=== PATIENT | male | born 1950 | race Caucasian/White ===

== ENCOUNTER 2016-12-24 12:17 | Emergency (ER) | payer OTHER, MEDICARE ==
[~2016-12-24 12:17] MED LIST: ASPI81TA2 PO; HYDR-2678 PO; HYDR25TA9 PO; INSU100I11 SQ; INSU100I13 SQ; LOSA100T6 PO; METF-620 PO; OXYC1TAB7 PO; TAMO20TA PO
[2016-12-24 12:56] VITALS: BP 140/89
--- NOTE | 2016-12-24 13:04 | PHYS DOC ---
Past Medical History Past Medical History: Arthritis, Cancer, Diabetes-Type II, Hypertension Additional Past Medical Histor: LEFT MASTECTOMY Past Surgical History: Cholecystectomy Additional Past Surgical Histo: LEFT ELBOW SURGERY Alcohol Use: None Drug Use: None Adult General Chief Complaint Chief Complaint: MECHANICAL FALL HPI HPI Patient is a 66 year old male who presents with right hip pain. Last night he tripped over a sprayer and landed on his right hip. He states his been able to ambulate makes it difficult for him to flex at his hip. He denies fevers chills nausea or vomiting. He has pain meds at home of oxycodone and just states he wants to know if his hip is broken. Eyes any other injuries such as headache, neck pain, chest pain or abdominal pain. Review of Systems Review of Systems Constitutional: Denies fever or chills [] Eyes: Denies change in visual acuity, redness, or eye pain [] HENT: Denies nasal congestion or sore throat [] Respiratory: Denies cough or shortness of breath [] Cardiovascular: No additional information not addressed in HPI [] GI: Denies abdominal pain, nausea, vomiting, bloody stools or diarrhea [] : Denies dysuria or hematuria [] Musculoskeletal: Denies back pain, pain in the right hip Integument: Denies rash or skin lesions [] Neurologic: Denies headache, focal weakness or sensory changes [] Endocrine: Denies polyuria or polydipsia [] Allergies Allergies Allergies Coded Allergies Type Severity Reaction Last Updated Verified No Known Drug Allergies 02/13/16 No Physical Exam Physical Exam Constitutional: Well developed, well nourished, no acute distress, non-toxic appearance. [] HENT: Normocephalic, atraumatic, bilateral external ears normal, oropharynx moist, no oral exudates, nose normal. [] Eyes: PERRLA, EOMI, conjunctiva normal, no discharge. [] Neck: Normal range of motion, no tenderness, supple, no stridor. [] Cardiovascular:Heart rate regular rhythm, no murmur [] Lungs & Thorax: Bilateral breath sounds clear to auscultation [] Abdomen: Bowel sounds normal, soft, no tenderness, no masses, no pulsatile masses. [] Skin: Warm, dry, no erythema, no rash. [] Back: No tenderness, no CVA tenderness. [] Extremities: Tender to palpation the posterior right hip without any step-offs, able to flex and extend with minimal discomfort of the right hip, no cyanosis, no clubbing, ROM intact, no edema left hip nontender full range of motion, dorsal pedis pulse intact on the right lower show many. [] Neurologic: Alert and oriented X 3, normal motor function, normal sensory function, no focal deficits noted. [] Psychologic: Affect normal, judgement normal, mood normal. [] Current Patient Data Vital Signs Vital Signs Date Time Temp Pulse Resp B/P (MAP) Pulse Ox O2 Delivery O2 Flow Rate FiO2 12/24/16 12:56 98.4 115 20 95 Room Air 98.4 EKG EKG [] Radiology/Procedures Radiology/Procedures [facility] [address] [place] [address] IMAGING REPORT Signed PATIENT: STEFANIA LABOY ACCOUNT: [id number] : 1950 LOCATION: ER AGE: 66 SEX: M EXAM STATUS: PRE ER ORD. PHYSICIAN: NERY CHIN MD REASON: pain PROCEDURE: HIP RIGHT 2V WITH PELVIS Pelvis with right hip, 3 views, 12/24/2016: History: Fall, hip pain No fracture or dislocation is identified. The hip joint spaces are fairly well-preserved with only mild marginal spurring. Arterial calcifications are present. IMPRESSION: No acute bony abnormality is detected. DICTATED and SIGNED BY: DANIA ATKINS MD DATE: 12/24/16 0976 CC: NERY CHIN MD; CLEMENTINA MORRISON Jr, MD ~ Impressions: Right hip contusion Course & Med Decision Making Course & Med Decision Making Pertinent Labs and Imaging studies reviewed. (See chart for details) X-rays do not show any fractures of the pelvis or hip. Patient has pain meds at home and crutches. He is being discharged in stable condition to follow up with primary care physician if his pain does not resolve over the next week. Return precautions given and is agreeable to the plan and being discharged in stable condition. Dragon Disclaimer Dragon Disclaimer This electronic medical record was generated, in whole or in part, using a voice recognition dictation system. Departure Departure Impression: Primary Impression: Hip pain Disposition: 01 HOME, SELF-CARE Condition: STABLE Referrals: CLEMENTINA MORRISON Jr, MD (PCP) Patient Instructions: Contusion, [id number] Additional Instructions: The x-rays of your hip did not show anything broken. It's likely contused. It will be sore for the next few days. Follow-up with her primary care physician within the next week if you're still in pain or discomfort. There is severe pain or discomfort please return back to ER. NERY CHIN MD December 24, 2016 13:04
--- NOTE | 2016-12-24 13:58 | RAD ---
Pelvis with right hip, 3 views, 12/24/2016: History: Fall, hip pain No fracture or dislocation is identified. The hip joint spaces are fairly well-preserved with only mild marginal spurring. Arterial calcifications are present. IMPRESSION: No acute bony abnormality is detected.
== END 2016-12-24 14:45 | disposition home or self-care (01) ==
LOC: ER 14:13
DX: M25.551 Pain in right hip (principal); M19.90 Unspecified osteoarthritis, unspecified site; E11.9 Type 2 diabetes mellitus without complications; I10 Essential (primary) hypertension; W22.8XXA Striking against or struck by other objects, initial encounter; Y93.89 Activity, other specified; Y92.89 Other specified places as the place of occurrence of the external cause; Y99.2 Volunteer activity
CPT/HCPCS: 73502; 99284-25

== ENCOUNTER → 2019-01-10 | Outpatient (CLI) | payer MEDICARE, OTHER ==
[~2019-01-10] MED LIST changes: +ASPI-630 PO; -ASPI81TA2 PO; +GADOTERATE 7.5 MMOL/15ML VIAL. IVP ONE; +HYDR-2145 PO; -HYDR25TA9 PO; +LOSA100T14 PO; -LOSA100T6 PO; -METF-620 PO; +METF10007 PO
[2019-01-10 09:51] LABS: CREATININE 1.4 mg/dL (0.7-1.3); GFR 50.1
--- NOTE | 2019-01-10 14:38 | RAD ---
MRI of the lumbar spine without and with contrast 01/10/2019 CLINICAL HISTORY: Low back pain with worsening right leg pain. History of breast cancer. TECHNIQUE: Unenhanced T1-weighted and T2-weighted sagittal and axial recovery sagittal images the lumbar spine were obtained. After the intravenous administration of 21 cc of Dotarem, enhanced T1-weighted sagittal and axial images of the lumbar spine were obtained. FINDINGS: Very mild S-shaped curvature of the thoracolumbar spine is seen. Degenerative signal changes are seen involving all the disks of the lumbar spine. Degenerative signal changes are seen within the marrow surrounding these discs. Loss of height of the L3-4 disc is noted. Several hemangiomas are seen scattered throughout the visualized thoracic and lumbar vertebral bodies. These measure 3 mm to 6 mm in size. The conus medullaris is within normal limits in morphology, position, and signal characteristics. No area of abnormal signal intensity is seen to suggest evidence of metastatic disease involving the visualized thoracic and lumbosacral vertebrae. No area of abnormal contrast enhancement is seen. At the L1-2 disc space there is a mild to moderate generalized disc bulge. Superimposed on this disc bulge is a left lateral focal disc protrusion. This measures 4 mm in AP diameter. Degenerative changes are seen involving the facet joints bilaterally. There is mild ligamentum flavum hypertrophy bilaterally. These findings when combined do not result in significant central spinal canal or neural foraminal stenosis. At the L2-3 disc space there is a mild generalized disc bulge. Degenerative changes are seen involving the facet joints bilaterally. There is mild ligamentum flavum hypertrophy bilaterally. These findings when combined do not result in significant central spinal canal or neural foraminal stenosis. At the L3-4 disc space there is a moderate generalized disc bulge. This is eccentric to the left. Superimposed on this disc bulge is a left lateral focal disc protrusion. This measures 9 mm in AP diameter. Degenerative changes are seen involving the facet joints bilaterally. There is moderate ligamentum flavum hypertrophy bilaterally. These findings when combined result in mild to moderate central spinal canal stenosis. Moderate left neural foraminal stenosis is seen. The right neural foramen is patent. At the L4-5 disc space there is a mild generalized disc bulge. Degenerative changes are seen involving the facet joints bilaterally. There is mild ligamentum flavum hypertrophy bilaterally. These findings do not result in significant central spinal canal or neural foraminal stenosis. At the L5-S1 disc space there is a mild generalized disc bulge. Degenerative changes are seen involving the facet joints bilaterally. These findings when combined do not result in significant central spinal canal or neural foraminal stenosis. IMPRESSION: The changes of degenerative disc disease are seen throughout the lumbar spine. These findings result in mild to moderate central spinal canal stenosis and moderate left neural foraminal stenosis at L3-4. Electronically signed by: Francisco Darling MD (01/10/2019 2:35 PM) [email or web address]
== END | disposition home or self-care (01) ==
LOC: MRI 09:21
PROVIDERS: ATTEND Physical Medicine & Rehabilitation
DX: M51.16 Intervertebral disc disorders with radiculopathy, lumbar region (principal); M47.27 Other spondylosis with radiculopathy, lumbosacral region; M48.061 Spinal stenosis, lumbar region without neurogenic claudication; M89.38 Hypertrophy of bone, other site; D18.09 Hemangioma of other sites
CPT/HCPCS: 36415; 72158; 82565; 84520; A9575

== ENCOUNTER → 2019-02-26 | Outpatient (CLI) | payer MEDICARE ==
[~2019-02-26] MED LIST changes: -GADOTERATE 7.5 MMOL/15ML VIAL. IVP ONE
--- NOTE | 2019-02-26 17:36 | RAD ---
CT LUMBAR SPINE WO CONTRAST Date: 02/26/2019 3:30 PM Indication: Comparison: MRI 01/10/2019. Technique: Helical CT images of the lumbar spine were obtained without contrast. Coronal and sagittal reformatted images were also performed. One or more of the following dose reduction techniques were utilized: Automated exposure control (AEC), Adjustment of mA and/or kV according to patient size, Use of iterative reconstruction technique such as ASiR, CT scan done according to ALARA and image gently/image wisely. Findings: The lumbar spine is normally aligned. No acute fracture. Vertebral body heights are maintained without compression deformity. No aggressive lytic or blastic osseous lesion. Moderate multilevel degenerative disc space height loss. Multilevel spinal canal stenosis and neuroforaminal narrowing, best characterized on recent MRI L-spine report. Multilevel mild and moderate facet arthrosis. Bilateral L5 pars defects. Calcified splenic granulomas. The visualized abdominal aorta is normal caliber. Moderate aortoiliac atherosclerotic disease. IMPRESSION: Moderate lumbar spondylosis. Multilevel spinal canal stenosis or neural foraminal narrowing, best characterized on recent MRI lumbar spine port. Electronically signed by: Matt Adam MD (02/26/2019 5:32 PM) [email or web address]
== END | disposition home or self-care (01) ==
LOC: CT 14:55
PROVIDERS: ATTEND Orthopaedic Surgery Orthopaedic Surgery of the Spine
DX: M47.26 Other spondylosis with radiculopathy, lumbar region (principal); M48.061 Spinal stenosis, lumbar region without neurogenic claudication; D73.89 Other diseases of spleen; I70.0 Atherosclerosis of aorta; I70.8 Atherosclerosis of other arteries
CPT/HCPCS: 72131

== ENCOUNTER 2019-06-08 16:14 | Emergency (ER) | payer MEDICARE ==
[~2019-06-08] VITALS: Ht 180.3 cm; Wt 108.9 kg
[2019-06-08] MEDS ORDERED: IV NORMAL SALINE 1000ML BAG 1,000 ML IV ONE (16:45)
--- NOTE | 2019-06-08 16:45 | PHYS DOC ---
Past Medical History Past Medical History: Arthritis, Cancer, Diabetes-Type II, Hypertension Additional Past Medical Histor: LEFT MASTECTOMY Past Surgical History: Cholecystectomy Additional Past Surgical Histo: LEFT ELBOW SURGERY Alcohol Use: None Drug Use: None Adult General Chief Complaint Chief Complaint: HYPERGLYCEMIA HPI HPI Patient is a 69 year old male who presents with high blood sugar. The patient states he checked his blood sugar about 4:00 and it was 540 at home and so took 15 units of subcutaneous regular insulin. The patient states that been coughing the last week or 2. He states that his blood sugars normally run in the 200s. He did state that he has been taking less insulin as he has been trying to save money. Denies any pain or fever this time. States he has been feeling off recently. Review of Systems Review of Systems Constitutional: Denies fever or chills [] Eyes: Denies change in visual acuity, redness, or eye pain [] HENT: Denies nasal congestion or sore throat [] Respiratory: Reports cough Cardiovascular: No additional information not addressed in HPI [] GI: Denies abdominal pain, nausea, vomiting, bloody stools or diarrhea [] : Denies dysuria or hematuria [] Musculoskeletal: Denies back pain or joint pain [] Integument: Denies rash or skin lesions [] Neurologic: Denies headache, focal weakness or sensory changes [] Endocrine: Denies polyuria or polydipsia [] Complete systems were reviewed and found to be within normal limits, except as documented in this note. Current Medications Current Medications Current Medications Medications (Trade) Dose Ordered Sig/Yanet Start Time Stop Time Status Last Admin Dose Admin Sodium Chloride 500 ml @ 500 mls/hr 1X ONCE 06/08/19 18:00 06/08/19 18:59 06/08/19 18:00 500 MLS/HR Allergies Allergies Allergies Coded Allergies Type Severity Reaction Last Updated Verified No Known Drug Allergies 02/13/16 No Physical Exam Physical Exam Constitutional: Well developed, well nourished, no acute distress, non-toxic appearance. [] HENT: Normocephalic, atraumatic, bilateral external ears normal, oropharynx moist, no oral exudates, nose normal. [] Eyes: PERRLA, EOMI, conjunctiva normal, no discharge. [] Neck: Normal range of motion, no tenderness, supple, no stridor. [] Cardiovascular:Heart rate regular rhythm, no murmur [] Lungs & Thorax: Bilateral breath sounds diminished to based bilaterally, otherwise clear. Abdomen: Bowel sounds normal, soft, no tenderness, no masses, no pulsatile masses. [] Skin: Warm, dry, no erythema, no rash. [] Back: No tenderness, no CVA tenderness. [] Extremities: No tenderness, no cyanosis, no clubbing, ROM intact, no edema. [] Neurologic: Alert and oriented X 3, normal motor function, normal sensory function, no focal deficits noted. [] Psychologic: Affect normal, judgement normal, mood normal. [] Current Patient Data Vital Signs Vital Signs Date Time Temp Pulse Resp B/P (MAP) Pulse Ox O2 Delivery O2 Flow Rate FiO2 06/08/19 16:18 97.2 102 12 160/86 (110) 97 Room Air 97.2 Lab Values Laboratory Tests Test 06/08/19 16:28 06/08/19 17:00 06/08/19 17:04 Glucose (Fingerstick) 399 mg/dL (70-99) H White Blood Count 8.0 x10^3/uL (4.0-11.0) Red Blood Count 4.17 x10^6/uL (4.30-5.70) L Hemoglobin 12.9 g/dL (13.0-17.5) L Hematocrit 38.1 % (39.0-53.0) L Mean Corpuscular Volume 91 fL (79-100) Mean Corpuscular Hemoglobin 31 pg (25-35) Mean Corpuscular Hemoglobin Concent 34 g/dL (31-37) Red Cell Distribution Width 13.3 % (11.5-14.5) Platelet Count 270 x10^3/uL (140-400) Neutrophils (%) (Auto) 57 % (31-73) Lymphocytes (%) (Auto) 33 % (24-48) Monocytes (%) (Auto) 6 % (0-9) Eosinophils (%) (Auto) 3 % (0-3) Basophils (%) (Auto) 1 % (0-3) Neutrophils # (Auto) 4.5 x10^3/uL (1.8-7.7) Lymphocytes # (Auto) 2.6 x10^3/uL (1.0-4.8) Monocytes # (Auto) 0.5 x10^3/uL (0.0-1.1) Eosinophils # (Auto) 0.2 x10^3/uL (0.0-0.7) Basophils # (Auto) 0.1 x10^3/uL (0.0-0.2) Sodium Level 138 mmol/L (136-145) Potassium Level 4.4 mmol/L (3.5-5.1) Chloride Level 101 mmol/L (98-107) Carbon Dioxide Level 25 mmol/L (21-32) Anion Gap 12 (6-14) Blood Urea Nitrogen 25 mg/dL (8-26) Creatinine 1.6 mg/dL (0.7-1.3) H Estimated GFR (Cockcroft-Gault) 42.8 BUN/Creatinine Ratio 16 (6-20) Glucose Level 399 mg/dL (70-99) H Calcium Level 8.5 mg/dL (8.5-10.1) Total Bilirubin 0.4 mg/dL (0.2-1.0) Aspartate Amino Transferase (AST) 39 U/L (15-37) H Alanine Aminotransferase (ALT) 33 U/L (16-63) Alkaline Phosphatase 60 U/L (46-116) Total Protein 7.1 g/dL (6.4-8.2) Albumin 3.3 g/dL (3.4-5.0) L Albumin/Globulin Ratio 0.9 (1.0-1.7) L Urine Collection Type Void Urine Color Yellow Urine Clarity Clear Urine pH 5.5 Urine Specific [place] >=1.030 Urine Protein Negative mg/dL (NEG-TRACE) Urine Glucose (UA) >=1000 mg/dL (NEG) Urine Ketones (Stick) Negative mg/dL (NEG) Urine Blood Negative (NEG) Urine Nitrite Negative (NEG) Urine Bilirubin Negative (NEG) Urine Urobilinogen Dipstick 1.0 mg/dL (0.2 mg/dL) Urine Leukocyte Esterase Negative (NEG) Urine RBC 0 /HPF (0-2) Urine WBC Occ /HPF (0-4) Urine Squamous Epithelial Cells Few /LPF Urine Bacteria 0 /HPF (0-FEW) Laboratory Tests 06/08/19 17:00 Laboratory Tests 06/08/19 17:00 EKG EKG EKG interpreted by Dr. Michelle Sinus with rate of 112. No STEMI, RBBB (not new). Radiology/Procedures Radiology/Procedures [][facility] [address] [place] [address] IMAGING REPORT Signed PATIENT: STEFANIA LABOY ACCOUNT: [id number] : 1950 LOCATION: ER AGE: 69 SEX: M EXAM STATUS: REG ER ORD. PHYSICIAN: ANNETTE TOMPKINS APRN REASON: cough PROCEDURE: CHEST PA & LATERAL CHEST PA LATERAL History: Cough Comparison: None. Findings: 2 views of the chest are submitted. There is no infiltrate, pneumothorax, or effusion. Pericardial cardiac silhouette is within normal limits in size. There is some atherosclerotic calcification near the aortic arch. Impression: 1. There is no radiographic evidence of acute cardiopulmonary disease. Electronically signed by: Shayla Thomas MD (06/08/2019 5:32 PM) [id number] DICTATED and SIGNED BY: SHAYLA THOMAS MD DATE: 06/08/19 173 Course & Med Decision Making Course & Med Decision Making Pertinent Labs and Imaging studies reviewed. (See chart for details) Will get labs, ekg, chest x-ray, and give supportive care. Labs, EKG, and chest x-ray are unremarkable. Will d/c home. Blood sugar is more under control. Dragon Disclaimer Dragon Disclaimer This electronic medical record was generated, in whole or in part, using a voice recognition dictation system. Departure Departure Impression: Primary Impression: Hyperglycemia Disposition: HOME, SELF-CARE Condition: STABLE Referrals: ANUM HELTON MD (PCP) Patient Instructions: Hyperglycemia Additional Instructions: Thank you for visiting [facility]. We appreciate you trusting us with your care. If any additional problems come up don't hesitate to return to visit us. Please follow up with your primary care provider so they can plan additional care if needed and know about the problem that you had. If symptoms worsen come back to the Emergency Department. Any concerning symptoms that start such as chest pain, shortness of air, weakness or numbness on one side of the body, running high fevers or any other concerning symptoms return to the ER. Please be aware that diabetes can cause your sugars to fluctuate while you are sick. This can cause additional issues. Please check your sugars often to ensure they are staying in a safe range and if you are on insulin please take as instructed by your primary care doctor. If you have any questions about this please let us know or contact your primary care provider for additional instruction about taking your insulin while you are sick. If you get concerned regarding your sugar while at home please do not hesitate to come back to the ER. ANNETTE TOMPKINS APRN Jun 08, 2019 16:45
[2019-06-08 17:07] LABS: BASO # 0.1 x10^3/uL (0.0-0.2); BASO % 1 % (0-3); EOS # 0.2 x10^3/uL (0.0-0.7); EOS % 3 % (0-3); HEMATOCRIT 38.1 % (39.0-53.0); HEMOGLOBIN 12.9 g/dL (13.0-17.5); LYMPH # 2.6 x10^3/uL (1.0-4.8); LYMPH % 33 % (24-48); MEAN CORPUSCULAR HEMOGLOBIN 31 pg (25-35); MEAN CORPUSCULAR HGB CONC 34 g/dL (31-37); MEAN CORPUSCULAR VOLUME 91 fL (79-100); MONO # 0.5 x10^3/uL (0.0-1.1); MONO % 6 % (0-9); NEUT # 4.5 x10^3/uL (1.8-7.7); NEUT % 57 % (31-73); PLATELET COUNT 270 x10^3/uL (140-400); RED BLOOD COUNT 4.17 x10^6/uL (4.30-5.70); RED CELL DISTRIBUTION WIDTH 13.3 % (11.5-14.5)
[2019-06-08 17:23] LABS: BILIRUBIN,URINE NEGATIVE (NEG); CLARITY,URINE CLEAR; COLOR,URINE YELLOW; NITRITE,URINE NEGATIVE (NEG); PH,URINE 5.5; PROTEIN,URINE NEGATIVE (NEG-TRACE)
[2019-06-08 17:35] LABS: CALCIUM 8.5 mg/dL (8.5-10.1); CREATININE 1.6 mg/dL (0.7-1.3); GFR 42.8; POTASSIUM 4.4 mmol/L (3.5-5.1)
[2019-06-08 17:36] LABS: BACTERIA,URINE 0 /HPF (0-FEW); RBC,URINE 0 /HPF (0-2); SQUAMOUS EPITHELIAL CELL,UR FEW /LPF; WBC,URINE OCC /HPF (0-4)
--- NOTE | 2019-06-08 17:36 | RAD ---
CHEST PA LATERAL History: Cough Comparison: None. Findings: 2 views of the chest are submitted. There is no infiltrate, pneumothorax, or effusion. Pericardial cardiac silhouette is within normal limits in size. There is some atherosclerotic calcification near the aortic arch. Impression: 1. There is no radiographic evidence of acute cardiopulmonary disease. Electronically signed by: Matt Campoverde MD (06/08/2019 5:32 PM) [email or web address]
[2019-06-08 17:41] LABS: ALBUMIN 3.3 g/dL (3.4-5.0); ALBUMIN/GLOBULIN RATIO 0.9 (1.0-1.7); TOTAL BILIRUBIN 0.4 mg/dL (0.2-1.0); TOTAL PROTEIN 7.1 g/dL (6.4-8.2)
[2019-06-08] MEDS ORDERED: IV NORMAL SALINE 500ML BAG 500 ML IV ONE (18:00)
[2019-06-08 18:58] VITALS: BP 156/76
--- NOTE | 2019-06-11 06:11 | EKG ---
[facility] [address] [place] [address] Test Date: 2019-06-08 Test Time: 16:58:48 Pat Name: STEFANIA LABOY Department: Room: Gender: M Tip Stitcher: : 1950 Requested By: ANNETTE TOMPKINS Order Number: [id number] Reading MD: Measurements Intervals Taylor Rate: 112 P: [place]: QRS: -37 QRSD: 136 T: -6 QT: 338 QTc: 463 Interpretive Statements ATRIAL FIB./FLUTTER WITH RAPID VENTRICULAR RESPONSE ABNORMAL LEFT AXIS DEVIATION LEFT ANTERIOR FASCICULAR BLOCK RIGHT BUNDLE BRANCH BLOCK BIFASCICULAR BLOCK RVH WITH REPOLARIZATION ABNORMALITY ABNORMAL ECG No previous ECG available for comparison
== END 2019-06-08 19:25 | disposition home or self-care (01) ==
LOC: ER 16:14
DX: E11.65 Type 2 diabetes mellitus with hyperglycemia (principal); M19.90 Unspecified osteoarthritis, unspecified site; I10 Essential (primary) hypertension
CPT/HCPCS: 36415; 71046; 80053; 81001; 82962; 85025; 93005; 96360; 96361; 99285; J7030; J7040

== ENCOUNTER → 2020-11-13 | Outpatient (CLI) | payer OTHER, MEDICARE ==
--- NOTE | 2020-11-13 16:06 | [facility] ---
EXAMINATION: Magnetic resonance imaging (MRI) of the lumbar spine without contrast 11/13/2020 1:50 PM HISTORY: Lumbar radiculopathy. Severe low back pain for the last 4 years. TECHNIQUE: Multiplanar multi-weighted MRI of the lumbar spine was performed without intravenous contr ast using the standard lumbar spine protocol. Contrast information: None administered. COMPARISON: CT lumbar spine 02/26/2019, MRI lumbar spine 01/10/2019 FINDINGS: There is minimal anterolisthesis of L3 on L4. Minimal antral C6 as of L5 on S1. There is moderate dis c height loss at L3-L4 with Modic type I endplate degenerative changes. There is mild disc height los s at L5-S1 with Modic type I endplate degenerative changes. There is subtle T1 signal hypointensity i nvolving the superior endplate of L5 with marrow edema. There is prevertebral edema. Disc signal inte nsity appears to be normal and T2-weighted images. No epidural edema or phlegmon. Mild disc height lo ss is identified at L2-L3. Conus medullaris terminates at L1. Distal spinal cord signal intensity is normal in all sequences. Abdominal aorta is normal in caliber. No suspicious retroperitoneal abnormal ity is identified. L1-L2: There is a circumferential disc bulge with central disc protrusion. Mild facet arthropathy. Mo derate bilateral neuroforaminal stenosis. Mild spinal canal stenosis, exacerbated by epidural lipomat osis. L2-L3: There is a circumferential disc bulge. Mild facet arthropathy. There is a central disc extrusi on extending into the left subarticular recess. Mild facet arthropathy. There is left lateral recess stenosis. Moderate left and mild right neuroforaminal stenosis. Mild spinal canal stenosis. L3-L4: There is a moderate circumferential disc bulge. Moderate facet arthropathy with ligamentum fla vum infolding. Severe bilateral neuroforaminal stenosis. Moderate spinal canal stenosis. L4-L5: There is a disc bulge with left central disc protrusion. Mild facet arthropathy. Mild bilatera l neuroforaminal stenosis. No significant spinal canal stenosis. L5-S1: There is mild disc bulge asymmetric to the left. Mild facet arthropathy. Mild bilateral neurof oraminal stenosis. No spinal canal stenosis. IMPRESSION: Modic type I endplate degenerative changes are identified at L5-S1 with endplate marrow edema. Linear T1 signal hypointensity involving the superior endplate of S1 could represent a fracture line, altho ugh dense sclerosis may have similar appearance. There is prevertebral edema identified at L5-S1. Con sideration may be given for advanced discogenic changes at this level. No disc signal alteration to s uggest discitis osteomyelitis. No definite osseous erosion by MRI. Further evaluation with CT lumbar spine could be of benefit for further evaluation. Moderate degenerative changes of lumbar spine, as described in detail above. FOR INTERNAL CODING PURPOSES Critical result: Findings conveyed in voicemail to nurse Renetta for Dr. Campbell at 11/13/2020 4:02 PM. RESULT CODE: (C) Electronically signed by: Jacquelin Strauss MD (11/13/2020 4:04 PM) [id number]
== END ==
LOC: KCIC MRI 13:38
PROVIDERS: ATTEND Orthopaedic Surgery Orthopaedic Surgery of the Spine
DX: M47.26 Other spondylosis with radiculopathy, lumbar region (principal); M48.061 Spinal stenosis, lumbar region without neurogenic claudication; M43.16 Spondylolisthesis, lumbar region; M41.86 Other forms of scoliosis, lumbar region
CPT/HCPCS: 72148

== ENCOUNTER → 2020-11-24 | Outpatient (CLI) | payer MEDICARE, OTHER ==
--- NOTE | 2020-11-24 15:46 | KCIC ---
EXAM: Lumbar spine CT without contrast. HISTORY: Chronic lower back pain. Right lower extremity radiculopathy. TECHNIQUE: Computed tomographic images of the lumbar spine were obtained without contrast. Multiplana r reformatting was performed. *One or more of the following individualized dose reduction techniques were utilized for this examina tion: 1. Automated exposure control. 2. Adjustment of the mA and/or kV according to patient size. 3. Use of iterative reconstruction technique. COMPARISON: MRI dated 11/13/2020. FINDINGS: There is S-shaped lumbar scoliosis with dextrocurvature centered at L2-L3 and levocurvature centered at L4-L5. There is rightward lateral translation of L3 on L4. There is grade 1 anterolisthe sis of L5 on S1, measuring 3 mm. There are bilateral pars interarticularis defects this level. There is 2 mm retrolisthesis of L1 on L2 and L2 on L3. There is degenerative endplate remodeling with disc space narrowing and osteophytosis primarily along the left aspect of L3-L4. This corresponds with the level of maximum scoliotic concavity. There are few endplate Schmorl's nodes. There is a vacuum phenomenon at multiple levels. No acute or subacute fracture is seen. Specifically, there is no suspicious finding to correlate with linear sign al abnormality within the superior endplate of S1. There is degenerative subchondral sclerosis and va cuum phenomenon involving the sacroiliac joints. 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 At L1-L2, there is a right lateral predominant disc bulge and endplate remodeling. There is mild righ t greater than left facet arthropathy. There is slight retrolisthesis. There is moderate bilateral fo raminal stenosis. There is mild central canal stenosis. At L2-L3, there is a left lateral recess disc protrusion with slight inferior extrusion superimposed on a disc bulge and endplate osteophytosis. There is mild bilateral facet arthropathy. There is moder ate left greater than right foraminal stenosis. There is moderate central canal stenosis and narrowin g of the left lateral recess. At L3-L4, there is a left lateral recess to extra foraminal disc protrusion and osteophyte complex vogel perimposed on a left lateral predominant disc bulge and endplate osteophytosis. There is moderate rig ht and severe left facet arthropathy. There is lateral right and severe left foraminal stenosis. Ther e is moderate central canal stenosis. At L4-L5, there is a disc bulge and endplate remodeling. There is moderate bilateral facet arthropath y. There is mild to moderate right and moderate left foraminal stenosis. There is mild central canal stenosis. At L5-S1, there is a left foraminal to extra foraminal disc protrusion superimposed on a right latera l predominant disc bulge and endplate osteophytosis. There is grade 1 anterolisthesis with pars defec ts. There is mild left facet arthropathy. There is moderate to severe right and moderate left foramin al stenosis. IMPRESSION: 1. Multilevel degenerative change involving the lumbar spine and lower thoracic spine, described in d etail above. This results in stenosis of aforementioned levels. 2. Grade 1 anterolisthesis with bilateral pars defects at L5-S1. The superimposed on S-shaped scolios is and slight lateral translation of L3 on L4 and slight retrolisthesis at the upper lumbar levels. 3. No acute osseous finding.. Note is made that the aforementioned degenerative changes have progress ed at L3-L4 and L5-S1 compared to the prior CT performed 02/26/2019. The degenerative changes are fair ly similar compared to the prior exam at the remainder of the lumbar levels. Electronically signed by: Jessica Valladares MD (11/24/2020 3:44 PM) [id number]
== END ==
LOC: KCIC CT 15:02
PROVIDERS: ATTEND Orthopaedic Surgery Orthopaedic Surgery of the Spine
DX: M47.27 Other spondylosis with radiculopathy, lumbosacral region (principal); M48.07 Spinal stenosis, lumbosacral region
CPT/HCPCS: 72131

== ENCOUNTER → 2021-04-02 | Outpatient (CLI) | payer OTHER, MEDICARE ==
--- NOTE | 2021-04-02 16:47 | CARD ---
MR#: [id number] Date of Study: 04/02/2021 Ordering Physician: FLAVIO COYLE, Referring Physician: FLAVIO COYLE, Tech: Jacquelyn Red [facility] APPROVED REPORT EXAM: Two-dimensional and M-mode echocardiogram with Doppler and color Doppler. Other Information Quality : AverageHR: 99bpm INDICATION Abnormal ECG RISK FACTORS Hypertension Hyperlipidemia Diabetes 2D DIMENSIONS RVDd3.3 (2.9-3.5cm)Left Atrium(2D)3.7 (1.6-4.0cm) IVSd1.1 (0.7-1.1cm)Aortic Root(2D)3.4 (2.0-3.7cm) LVDd5.1 (3.9-5.9cm)LVOT Diameter2.2 (1.8-2.4cm) PWd1.1 (0.7-1.1cm)LVDs4.0 (2.5-4.0cm) FS (%) 20.9 %SV52.9 ml LVEF(%)42.3 (>50%) Aortic Valve AoV Peak Beto.116.6cm/sAoV VTI20.8cm AO Peak GR.5.4mmHgLVOT Peak Beto.69.8cm/s LVOT VTI 13.41cmAO Mean GR.3mmHg KRISTEN (VMAX)1.98zr8BDA (VTI)2.40cm2 Mitral Valve MV E Oxtixmuo26.7cm/sMV DECEL TKPL194at MV A Soqmapsh46.3cm/sMV E Mean Gr.2mmHg MV MLM57ldB/A Ratio1.1 MVA (PHT)5.49cm2 TDI E/Lateral E'5.9E/Medial E'4.2 Pulmonary Valve PV Peak Clxzdmbd607.7cm/sPV Peak Grad.4mmHg Tricuspid Valve TR P. Uclnagic983vu/sRAP CCJBEQLX4ekAz TR Peak Gr.82tlZdKQEZ25mkHk Pulmonary Vein S1 Wklcraha78.4cm/sD2 Ovnettcu18.9cm/s PVa [id number] LEFT VENTRICLE The left ventricle is normal size. There is mild concentric left ventricular hypertrophy. The left ve ntricular systolic function is normal and the ejection fraction is within normal range. The Ejection Fraction is 50-55%. There is normal LV segmental wall motion. Tissue Doppler imaging reveals mild lef t ventricular diastolic dysfunction. RIGHT VENTRICLE The right ventricle is normal size. There is normal right ventricular wall thickness. The right ventr icular systolic function is normal. ATRIA The left atrium size is normal. The right atrium size is normal. The interatrial septum is intact wit h no evidence for an atrial septal defect or patent foramen ovale as noted on 2-D or Doppler imaging. AORTIC VALVE The aortic valve is normal in structure and function. Doppler and Color Flow revealed no significant aortic regurgitation. There is no significant aortic valvular stenosis. Calculated aortic valve area is 2.9 cm2 with maximum pressure gradient of 8 mmHg and mean pressure gradient of 4 mmHg. MITRAL VALVE The mitral valve is normal in structure and function. There is no evidence of mitral valve prolapse. There is no mitral valve stenosis. Doppler and Color-flow revealed trace mitral regurgitation. TRICUSPID VALVE The tricuspid valve is normal in structure and function. Doppler and Color Flow revealed trace tricus pid regurgitation with an estimated PAP of 28 mmHg. There is no tricuspid valve stenosis. PULMONIC VALVE Doppler and Color Flow revealed trace pulmonic valvular regurgitation. There is no pulmonic valvular stenosis. GREAT VESSELS The aortic root is normal in size. The ascending aorta is normal in size. The IVC is normal in size a nd collapses >50% with inspiration. PERICARDIAL EFFUSION There is no evidence of significant pericardial effusion. Critical Notification Critical Value: No <Conclusion> The left ventricular systolic function is normal and the ejection fraction is within normal range. Th e Ejection Fraction is 50-55%. There is normal LV segmental wall motion. Doppler and Color Flow revealed trace tricuspid regurgitation with an estimated PAP of 28 mmHg. Signed by : Jeison Chaparro, Electronically Approved : 04/02/2021 16:47:10
== END ==
LOC: ECHO 10:28
PROVIDERS: ATTEND Internal Medicine Cardiovascular Disease
DX: I51.7 Cardiomegaly (principal); I10 Essential (primary) hypertension; E11.9 Type 2 diabetes mellitus without complications; E78.5 Hyperlipidemia, unspecified
CPT/HCPCS: 93306